=== PATIENT | male | born 1990 | race Two or more races ===

== ENCOUNTER 2020-01-24 20:51 | Emergency (ER) | payer SELFPAY ==
[~2020-01-24] VITALS: Ht 154.9 cm; Wt 54.4 kg
[2020-01-24 20:45] VITALS: BP 125/84
--- NOTE | 2020-01-24 20:45 | NUR ---
ED Nurse Note: pt walked in to ed for C/O sore throat x 1 month. pt denies any cough, sob. tmp at triage is 98.1
[2020-01-24] MEDS ORDERED: IBUPROFEN400 M1 PO (20:56)
[2020-01-24] MEDS ORDERED: AMOXICILLIN500 MG ORAL (20:56)
--- NOTE | 2020-01-24 21:03 | Emergency Room Report ---
History of Present Illness General Chief Complaint: Sore Throat Source: Patient Present Illness HPI Patient is a 29-year-old male presents after increased sore throat. Onset of symptoms approximately 1 month ago. Reports having continued pain. Worse with swallowing. Denies any recent fever or cough. Denies any shortness of breath. Denies any prior medical history. Allergies: Coded Allergies: No Known Allergies (Unverified , 01/24/20) COVID-19 Screening Contact w/high risk pt: No Recent Travel to affected area: No Experienced COVID-19 symptoms?: No Patient History Past Medical History: see triage record Reviewed Nursing Documentation: PMH: Agreed; PSxH: Agreed Nursing Documentation-PMH Past Medical History: No Stated History Review of Systems All Other Systems: negative except mentioned in HPI Physical Exam Vital Signs Date Time Temp Pulse Resp B/P (MAP) Pulse Ox O2 Delivery O2 Flow Rate FiO2 01/24/20 20:42 98.1 64 18 125/84 (98) 98 Room Air General Appearance: well appearing, no apparent distress, GCS 15 Head: normocephalic, atraumatic ENT: hearing grossly normal, normal voice, tonsillar swelling, other - No midline shift of uvula Neck: full range of motion, supple Respiratory: lungs clear, no respiratory distress, speaking full sentences Cardiovascular #1: normal inspection Gastrointestinal: normal inspection, normal bowel sounds, soft Musculoskeletal: no calf tenderness Neurologic: normal gait Psychiatric: mood/affect normal Skin: no rash Medical Decision Making Diagnostic Impression: Primary Impression: Tonsillitis ER Course Patient presented for sore throat. Differential diagnosis includes not limited to tonsillitis, abscess, strep pharyngitis among others. Patient has a benign exam and does not appear to require any imaging or laboratory testing at this time. Patient appears to have a tonsillitis. To be discharged home. He is advised to follow-up with his primary care physician for recheck. Is advised to return if worse. Last Vital Signs Date Time Temp Pulse Resp B/P (MAP) Pulse Ox O2 Delivery O2 Flow Rate FiO2 01/24/20 20:45 98.1 64 18 125/84 98 Room Air Status: improved Disposition: HOME, SELF-CARE Condition: Stable Scripts Ibuprofen (Ibuprofen) 400 Mg Tablet 400 MG PO EVERY 8 HOURS, #30 TAB Prov: Yomi Sharpe MD 01/24/20 Amoxicillin* (AMOXIL*) 500 Mg Capsule 500 MG ORAL THREE TIMES A DAY, #21 CAP Prov: Yomi Sharpe MD 01/24/20 Patient Instructions: Tonsillitis Yomi Sharpe MD Jan 24, 2020 21:03
--- NOTE | 2020-01-24 21:03 | NUR ---
ER DISCHARGE NOTE: Patient is cleared to be discharged per ERMD, pt is aox4, on room air, with stable vital signs. pt was given dc and prescription instructions, pt was able to verbalize understanding, pt id band removed without complications. pt is able to ambulate with steady gait. pt took all belongings.
[2020-01-24 21:04] VITALS: BP 120/82
== END 2020-01-24 21:15 | disposition home or self-care (01) ==
LOC: EDBD 20:51 → EMR 21:15
DX: J03.90 Acute tonsillitis, unspecified (principal)
CPT/HCPCS: 99282

== ENCOUNTER 2020-02-22 11:17 | Emergency (ER) | payer SELFPAY ==
[~2020-02-22] VITALS: Ht 160 cm; Wt 56.7 kg
[~2020-02-22 11:17] MED LIST: AMOXICILLIN500 MG ORAL; IBUPROFEN400 M1 PO
[2020-02-22 11:50] VITALS: BP 125/74
--- NOTE | 2020-02-22 11:50 | NUR ---
ED Nurse Note: Pt brought into ED for chest pain 07/09 that he has had for 2 months. Pain is medial chest, and has no radiation. Blood sent to lab. Pt is alert and orientedx4, amb. He denies nausea, cough, bodyaches, chills.
--- NOTE | 2020-02-22 12:08 | Emergency Room Report ---
History of Present Illness General Chief Complaint: Chest Pain Source: Patient Present Illness HPI Patient presents with anterior chest pain. He began approximately 2 months ago while he was at work. He works in a restaurant. He was not exerting himself. His anterior on the right and left-hand side of the sternum.. The pain is 10/10 at this time. It does not radiate. There is no associated nausea or diaphoresis. He denies any heartburn. Sore throat for 2 weeks. Patient seen here for tonsillitis 01/24/20. Treated with amoxicillin. The patient was evaluated about a month and a half ago. He had an EKG and a chest x-ray he thinks. They told him there was some problem with ribs. He was given a medication which he occasionally takes that somewhat helps. Risk factors for cardiac disease none. Grandmother had heart disease at an advanced age. No rashes, involuntary movements, NVD, trauma, productive cough, palpitations, headache, dysuria or hematuria. Allergies: Coded Allergies: No Known Allergies (Unverified , 01/24/20) COVID-19 Screening Contact w/high risk pt: No Recent Travel to affected area: No Experienced COVID-19 symptoms?: No COVID-19 Testing performed ASSET PROTECTION SPECIALIST: No Patient History Past Medical History: see triage record Social History: Reports: alcohol use; Denies: smoking, drug use Social History Narrative Works in a restaurant Reviewed Nursing Documentation: PMH: Agreed; PSxH: Agreed Nursing Documentation-PMH Past Medical History: No Stated History Review of Systems All Other Systems: negative except mentioned in HPI Physical Exam Vital Signs Date Time Temp Pulse Resp B/P (MAP) Pulse Ox O2 Delivery O2 Flow Rate FiO2 02/22/20 11:27 98.2 63 16 117/73 (88) 98 Room Air Sp02 EP Interpretation: reviewed, normal General Appearance: well appearing, no apparent distress, GCS 15 Head: normocephalic, atraumatic Eyes: bilateral eye normal inspection, bilateral eye PERRL, bilateral eye EOMI ENT: moist mucus membranes, pharyngeal erythema Neck: full range of motion, supple Respiratory: lungs clear, normal breath sounds, other - chest wall tenderness Cardiovascular #1: regular rate, rhythm Cardiovascular #2: 2+ radial (R) Gastrointestinal: normal inspection, normal bowel sounds, non tender, no mass, non-distended Musculoskeletal: back normal, normal range of motion, no calf tenderness, gait/ station normal Neurologic: alert, oriented x3, grossly normal Psychiatric: mood/affect normal Skin: no rash, warm/dry Medical Decision Making Diagnostic Impression: Primary Impression: Costochondritis Additional Impression: Viral pharyngitis ER Course Patient presents with anterior chest pain of 2 months intermittent duration. Differential includes angina, chest wall pain, gastroesophageal reflux amongst others. Evaluation with EKG, chest x-ray and labs. Risk factors are low. Patient will be treated with a dose of ketorolac. Pharyngitis has persisted. Consider other viral etiologies such as mono. EKG sinus bradycardia rate of [address]-T wave changes. CXR normal. Labs unremarkable. Patient sleeping. States pain has improved but still has. Discussed findings with patient. Also discussed the need for follow up. No medical emergency at this time. Patient stable for outpatient observation and treatment. Laboratory Tests Test 02/22/20 12:00 02/22/20 12:14 White Blood Count 5.3 K/UL (4.8-10.8) Red Blood Count 5.38 M/UL (4.70-6.10) Hemoglobin 14.9 G/DL (14.2-18.0) Hematocrit 42.8 % (42.0-52.0) Mean Corpuscular Volume 80 FL (80-99) Mean Corpuscular Hemoglobin 27.6 PG (27.0-31.0) Mean Corpuscular Hemoglobin Concent 34.7 G/DL (32.0-36.0) Red Cell Distribution Width 11.1 % (11.6-14.8) L Platelet Count 247 K/UL (150-450) Mean Platelet Volume 5.8 FL (6.5-10.1) L Neutrophils (%) (Auto) 62.4 % (45.0-75.0) Lymphocytes (%) (Auto) 27.4 % (20.0-45.0) Monocytes (%) (Auto) 6.4 % (1.0-10.0) Eosinophils (%) (Auto) 3.0 % (0.0-3.0) Basophils (%) (Auto) 0.8 % (0.0-2.0) Prothrombin Time 10.8 SEC (9.30-11.50) Prothrombin Time INR 1.0 (0.9-1.1) Activated Partial Thromboplast Time 26 SEC (23-33) Sodium Level 142 MMOL/L (136-145) Potassium Level 3.9 MMOL/L (3.5-5.1) Chloride Level 105 MMOL/L (98-107) Carbon Dioxide Level 26 MMOL/L (21-32) Anion Gap 11 mmol/L (5-15) Blood Urea Nitrogen 11 mg/dL (7-18) Creatinine 0.7 MG/DL (0.55-1.30) Estimated Glomerular Filtration Rate > 60 mL/min (>60) Glucose Level 104 MG/DL (74-106) Calcium Level 8.9 MG/DL (8.5-10.1) Total Bilirubin 0.4 MG/DL (0.2-1.0) Aspartate Amino Transferase (AST) 27 U/L (15-37) Alanine Aminotransferase (ALT) 35 U/L (12-78) Alkaline Phosphatase 76 U/L (46-116) Total Creatine Kinase 212 U/L (26-308) Troponin I 0.003 ng/mL (0.000-0.056) Pro-B-Type Natriuretic Peptide 51 pg/mL (0-125) Total Protein 7.7 G/DL (6.4-8.2) Albumin 4.1 G/DL (3.4-5.0) Globulin 3.6 g/dL Albumin/Globulin Ratio 1.1 (1.0-2.7) Urine Color Pale yellow Urine Appearance Clear Urine pH 6 (4.5-8.0) Urine Specific [place] 1.010 (1.005-1.035) Urine Protein Negative (NEGATIVE) Urine Glucose (UA) Negative (NEGATIVE) Urine Ketones Negative (NEGATIVE) Urine Blood Negative (NEGATIVE) Urine Nitrite Negative (NEGATIVE) Urine Bilirubin Negative (NEGATIVE) Urine Urobilinogen Normal MG/DL (0.0-1.0) Urine Leukocyte Esterase Negative (NEGATIVE) Urine Opiates Screen Negative (NEGATIVE) Urine Barbiturates Screen Negative (NEGATIVE) Phencyclidine (PCP) Screen Negative (NEGATIVE) Urine Amphetamines Screen Negative (NEGATIVE) Urine Benzodiazepines Screen Negative (NEGATIVE) Urine Cocaine Screen Negative (NEGATIVE) Urine Marijuana (THC) Screen Negative (NEGATIVE) EKG Diagnostic Results Rate: bradycardiac Rhythm: NSR ST Segments: no acute changes - Nonspecific ST-T wave changes Rhythm Strip Diag. Results EP Interpretation: yes Rhythm: no PVC's, no ectopy, other - Bradycardia Chest X-Ray Diagnostic Results Chest X-Ray Diagnostic Results : Chest X-Ray Ordered: Yes # of Views/Limited/Complete: 1 View Indication: Chest Pain EP Interpretation: Yes Interpretation: no consolidation, no effusion, no pneumothorax, other - slightly increased cor Impression: No acute disease Electronically Signed by: Electronically signed by Mitchel Bautista MD Last Vital Signs Date Time Temp Pulse Resp B/P (MAP) Pulse Ox O2 Delivery O2 Flow Rate FiO2 02/22/20 14:23 98.3 86 17 132/71 99 Room Air 02/22/20 11:50 99 Status: improved Disposition: HOME, SELF-CARE Condition: Improved Scripts Ibuprofen* (MOTRIN*) 600 Mg Tablet 600 MG ORAL Q6HR PRN for For Pain, #20 TAB Prov: Mitchel Bautista MD 02/22/20 Acetaminophen (Tylenol) 325 Mg Tablet 650 MG ORAL Q6H PRN for Prn Pain/Headache/Temp > 101, #20 TAB 0 Refills Prov: Mitchel Bautista MD 02/22/20 Referrals: NOT CHOSEN CARLOS/,REFERRING (PCP) Mitchel Bautista MD February 22, 2020 12:08
[2020-02-22] MEDS ORDERED: Ketorolac 30mg Inj IV ONE (12:15)
[2020-02-22 12:47] LABS: BASOPHILS % (AUTO) 0.8 % (0.0-2.0); HEMATOCRIT 42.8 % (42.0-52.0); HEMOGLOBIN 14.9 G/DL (14.2-18.0); LYMPHOCYTES % (AUTO) 27.4 % (20.0-45.0); MEAN CORPUSCULAR VOLUME 80 FL (80-99); MONOCYTES % (AUTO) 6.4 % (1.0-10.0); NEUTROPHILS % (AUTO) 62.4 % (45.0-75.0); PLATELET COUNT 247 K/UL (150-450); RED BLOOD COUNT 5.38 M/UL (4.70-6.10); RED CELL DISTRIBUTION WIDTH 11.1 % (11.6-14.8); WHITE BLOOD COUNT 5.3 K/UL (4.8-10.8)
[2020-02-22 12:56] LABS: APPEARANCE,URINE CLEAR; BILIRUBIN, URINE NEGATIVE (NEGATIVE); COLOR,URINE PALE YELLOW; GLUCOSE, URINE (UA) NEGATIVE (NEGATIVE); KETONES,URINE NEGATIVE (NEGATIVE); LEUKOCYTE ESTERASE ,URINE NEGATIVE (NEGATIVE); NITRITE,URINE NEGATIVE (NEGATIVE); PH,URINE 6 (4.5-8.0); PROTEIN,URINE NEGATIVE (NEGATIVE); UROBILINOGEN,URINE NORMAL MG/DL (0.0-1.0)
[2020-02-22 13:04] LABS: ANION GAP 11 mmol/L (5-15); BLOOD UREA NITROGEN 11 mg/dL (7-18); CALCIUM 8.9 MG/DL (8.5-10.1); CARBON DIOXIDE 26 MMOL/L (21-32); CHLORIDE 105 MMOL/L (98-107); CREATININE 0.7 MG/DL (0.55-1.30); POTASSIUM 3.9 MMOL/L (3.5-5.1); SODIUM 142 MMOL/L (136-145)
[2020-02-22 13:14] LABS: ALANINE AMINOTRANSFERASE 35 U/L (12-78); ALBUMIN 4.1 G/DL (3.4-5.0); ALBUMIN/GLOBULIN RATIO 1.1 (1.0-2.7); ALKALINE PHOSPHATASE 76 U/L (46-116); ASPARTATE AMINO TRANSFERASE 27 U/L (15-37); BILIRUBIN,TOTAL 0.4 MG/DL (0.2-1.0); CREATINE KINASE 212 U/L (26-308)
[2020-02-22 14:02] VITALS: BP 133/70
[2020-02-22] MEDS ORDERED: IBUPROFEN600 M1 ORAL (14:05)
[2020-02-22] MEDS ORDERED: TYLENOL325 MG ORAL (14:05)
[2020-02-22 14:23] VITALS: BP 132/71
--- NOTE | 2020-02-22 14:23 | NUR ---
ER DISCHARGE NOTE: Patient is cleared to be discharged per ERMD, pt is aox4, on room air, with stable vital signs. pt was given dc and prescription instructions, pt was able to verbalize understanding, pt id band and iv site removed without complications. pt is able to ambulate with steady gait. pt took all belongings. Pt educated on pharyngitis.
--- NOTE | 2020-02-22 16:29 | Diagnostic Imaging Report ---
EXAM: XR Chest, 1 View CLINICAL HISTORY: CP TECHNIQUE: Frontal view of the chest. COMPARISON: No relevant prior studies available. FINDINGS: Lungs: Unremarkable. No consolidation. Pleural space: Unremarkable. No pneumothorax. Heart: Slightly rounded appearance of the heart is likely projectional. Mediastinum: Unremarkable. Bones/joints: Unremarkable. IMPRESSION: No acute findings in the chest.
== END 2020-02-22 14:25 | disposition home or self-care (01) ==
LOC: EMR 11:49
DX: M94.0 Chondrocostal junction syndrome [Tietze] (principal); J02.8 Acute pharyngitis due to other specified organisms; R00.1 Bradycardia, unspecified
CPT/HCPCS: 36415; 71045; 80053; 80307; 81003; 82550; 83880; 84484; 85025; 85610; 85730; 93005; 96374; 99284; J1885